=== PATIENT | female | born 1950 | race Two or more races ===

== ENCOUNTER 2018-05-21 08:30 | Inpatient (IN) | payer OTHER ==
[~2018-05-21] VITALS: Ht 162.6 cm; Wt 88.0 kg
[2018-05-21] MEDS ORDERED: ATIVAN0.5 M1 PO (11:00)
[2018-05-21] MEDS ORDERED: TAMS0.4C PO (11:00)
[2018-05-21] MEDS ORDERED: ZANTAC300 MG PO (11:00)
[2018-05-21] MEDS ORDERED: PROTONIX40 MG PO (11:01)
[2018-05-21] MEDS ORDERED: REMERON15 MG PO (11:01)
[2018-05-21] MEDS ORDERED: SYNTROID PO (11:01)
[2018-05-21] MEDS ORDERED: GLUMETZA500 MG PO (11:02)
[2018-05-21] MEDS ORDERED: AVIDOXY100 MG PO (11:02)
[2018-05-21] MEDS ORDERED: LATANOPROST2.5 ML OP (11:02)
[2018-06-01] MEDS ORDERED: IMODIUM A-D2 M2 PO (12:00)
[2018-06-01] MEDS ORDERED: PERCOCET 5-3251 EACH PO (12:00)
[2018-06-01] MEDS ORDERED: INTESTINEX680 M1 PO (12:00)
[2018-06-01] MEDS ORDERED: OMEPRAZOLE20 MG PO (12:00)
== END 2018-06-01 12:50 | disposition home or self-care (01) | DRG 330 ==
LOC: SURH 05-26 06:10 → O/R 05-26 06:10 → SURH 05-26 07:00
PROVIDERS: ADMIT Surgery
PROC: 0DJD8ZZ Inspection of Lower Intestinal Tract, Via Natural or Artificial Opening Endoscopic (ICD-10-PCS; 2018-05-26)
PROC: 0DTN4ZZ Resection of Sigmoid Colon, Percutaneous Endoscopic Approach (ICD-10-PCS; principal; 2018-05-26 07:00)
DX: K57.20 Diverticulitis of large intestine with perforation and abscess without bleeding (principal); N39.0 Urinary tract infection, site not specified; A08.8 Other specified intestinal infections; R50.82 Postprocedural fever; I10 Essential (primary) hypertension; E11.9 Type 2 diabetes mellitus without complications; E03.8 Other specified hypothyroidism

== ENCOUNTER 2018-05-21 12:41 | Outpatient (CLI) | payer OTHER ==
[~2018-05-21 12:41] MED LIST: ATIVAN0.5 M1 PO; AVIDOXY100 MG PO; GLUMETZA500 MG PO; LATANOPROST2.5 ML OP; PROTONIX40 MG PO; REMERON15 MG PO; SYNTROID PO; TAMS0.4C PO; ZANTAC300 MG PO
== END 2018-05-21 12:48 | disposition home or self-care (01) ==
LOC: EKG 12:41
DX: Z01.810 Encounter for preprocedural cardiovascular examination (principal)

== ENCOUNTER 2018-05-25 08:49 | Outpatient (CLI) | payer OTHER | END 2018-05-25 09:02 | disposition home or self-care (01) | LOC: LAB 08:49 | DX: N39.0 Urinary tract infection, site not specified (principal) ==

== ENCOUNTER 2019-05-10 05:30 | Day surgery (SDC) | payer OTHER ==
[~2019-05-10 05:30] MED LIST changes: +IMODIUM A-D2 M2 PO; +INTESTINEX680 M1 PO; +OMEPRAZOLE20 MG PO; +PERCOCET 5-3251 EACH PO
== END 2019-05-10 11:35 | disposition home or self-care (01) ==
LOC: AMB-ENDOS 05:30 → ADM 13:30 → AMB-ENDOS 05-15 13:30
DX: K57.32 Diverticulitis of large intestine without perforation or abscess without bleeding (principal)